=== PATIENT | female | born 1990 | race Caucasian/White ===

== ENCOUNTER 2016-08-17 12:02 | Emergency (ER) | payer SELFPAY ==
--- NOTE | 2016-08-17 15:29 | ED ---
Throat Pain/Nasal Congestion - HPI Summary HPI Summary: Patient presents 2x days after sustaining a cat scratch to the lower lid of the eye and nose. She denies visual disturbances or eye pain, but endorses lower lid pain and pain over the medial canthus. Abrasion noted over the nose is healing well and without infection. No signs of infection. Patient also has been c/o nausea/vomiting since the incident, but states this most likely is d/t anxiety over the incident. Afebrile. Denies C/D. Denies head pain, ear pain, tearing or rhinorrhea. - History of Current Complaint Chief Complaint: EDEyeProblem Time Seen by Provider: 08/17/16 12:28 Hx Obtained From: Patient Onset/Duration: Sudden Onset Severity: Moderate - Allergies/Home Medications Allergies/Adverse Reactions: Allergies Allergy/AdvReac Type Severity Reaction Status Date / Time No Known Allergies Allergy Verified 08/17/16 12:14 PMH/Surg Hx/FS Hx/Imm Hx Previously Healthy: Yes Sensory History: Denies: Hx Contacts or Glasses Opthamlomology History: Denies: Hx Contacts or Glasses - Immunization History Hx Pertussis Vaccination: No Immunizations Up to Date: Unable to Obtain/Confirm Infectious Disease History: No Infectious Disease History: Denies: Traveled Outside the [place] in Last 30 Days - Social History Occupation: Employed Full-time Lives: With Family Alcohol Use: Rare Hx Substance Use: No Substance Use Type: Reports: None Hx Tobacco Use: No Smoking Status (MU): Never Smoked Tobacco Review of Systems Constitutional: Negative Positive: Erythema - lower lid without warmth or signs of infection, Other - medial canthus pain ENT: Negative Cardiovascular: Negative Gastrointestinal: Negative Positive: no symptoms reported, see HPI Musculoskeletal: Negative Positive: Other - abrasion 3Xcm in length over anterior portion of nose Neurological: Negative Psychological: Normal All Other Systems Reviewed And Are Negative: Yes Physical Exam Triage Information Reviewed: Yes Vital Signs On Initial Exam: Initial Vitals Temp Pulse Resp BP Pulse Ox 97.2 F 67 16 124/74 98 08/17/16 12:10 08/17/16 12:10 08/17/16 12:10 08/17/16 12:10 08/17/16 12:10 Vital Signs Reviewed: Yes Appearance: Positive: Well-Appearing, Well-Nourished Skin: Positive: Warm, Skin Color Reflects Adequate Perfusion, Other - abrasion 3Xcm in length over anterior portion of nose Head/Face: Positive: Normal Head/Face Inspection Eyes: Positive: EOMI, MERI, Conjunctiva Clear, Conjunctiva Inflammed, Other: - medial canthus erythema ENT: Positive: Pharynx normal Neck: Positive: Supple, No Lymphadenopathy Respiratory/Lung Sounds: Positive: Clear to Auscultation, Breath Sounds Present Cardiovascular: Positive: Normal, RRR, Pulses are Symmetrical in both Upper and Lower Extremities Musculoskeletal: Positive: Normal, Strength/ROM Intact Neurological: Positive: Normal, Sensory/Motor Intact, Speech Normal Psychiatric: Positive: Normal AVPU Assessment: Alert Diagnostics - Vital Signs Vital Signs Temp Pulse Resp BP Pulse Ox 08/17/16 14:00 62 114/81 97 08/17/16 13:30 64 110/67 97 08/17/16 13:00 61 113/73 96 08/17/16 12:57 71 98 08/17/16 12:56 115/70 08/17/16 12:13 97.2 F 67 16 124/74 99 08/17/16 12:10 97.2 F 67 16 124/74 98 - Laboratory Lab Statement: Any lab studies that have been ordered have been reviewed, and results considered in the medical decision making process. EENT Course/Dx - Course Course Of Treatment: Patient presents s/p cat scratch to the lower lid of the eye with medial canthus pain. +nausea and vomiting x 2 days. Compazine given as rx. Fluorescein stain to the eye with numbing agent. Eye exam without corneal abrasions, ulcers. Patient OK for discharge. Return precautions given and patient is OK for discharge. - Differential Diagnoses Differential Diagnoses: Abrasion, Corneal Abrasion, Trauma - Diagnoses Provider Diagnoses: Abrasion, face w/o infection Discharge - Discharge Plan Condition: Stable Disposition: HOME Prescriptions: Prochlorperazine TAB* [Compazine Tab*] 10 mg PO Q6H PRN #12 tab PRN Reason: Nausea Patient Education Materials: Acute Nausea and Vomiting (ED) Referrals: No Primary Care Phys,NOPCP [Primary Care Provider] - Additional Instructions: Follow up with PCP as needed If you develop redness, streaks of red around the wound, swelling, abnormal drainage or you develop a fever - you need to come back to the ED right away. Compazine as needed for nausea - up to 4 times daily
== END 2016-08-17 14:34 | disposition home or self-care (01) ==
LOC: ED 12:02
DX: S00.219A Abrasion of unspecified eyelid and periocular area, initial encounter (principal); R11.2 Nausea with vomiting, unspecified; W55.03XA Scratched by cat, initial encounter; Y92.9 Unspecified place or not applicable
CPT/HCPCS: 99282

== ENCOUNTER 2019-03-30 13:20 | Emergency (ER) | payer BC ==
[2019-03-30 14:20] VITALS: BP 136/90
--- NOTE | 2019-03-30 14:24 | UC ---
Throat Pain/Nasal Myles HPI - HPI Summary HPI Summary: 20-year-old who presented with sore throat, nasal congestion, bilateral ear discomfort, and mild dry cough since yesterday. Also notes watery eyes. Denies shortness breath or wheezing. Denies nausea or vomiting. Denies fever and chills. Denies body aches. Denies taking anything for symptom relief. States concern for strep throat because she is "prone to it." - History of Current Complaint Stated Complaint: SORE THROAT SINUS EARS Hx Obtained From: Patient Hx Last Menstrual Period: irregular Pain Intensity: 4 Pain Scale Used: 0-10 Numeric - Allergies/Home Medications Allergies/Adverse Reactions: Allergies Allergy/AdvReac Type Severity Reaction Status Date / Time No Known Allergies Allergy Verified 08/17/16 12:14 Home Medications: Home Medications NK [No Home Medications Reported] 03/30/19 [History Confirmed 03/30/19] PMH/Surg Hx/FS Hx/Imm Hx - Surgical History Surgical History: None - Social History Alcohol Use: Rare Substance Use Type: None Smoking Status (MU): Never Smoked Tobacco Review of Systems All Other Systems Reviewed And Are Negative: Yes Constitutional: Positive: Negative ENT: Positive: Sore Throat, Ear Ache, Sinus Congestion Respiratory: Positive: Cough Cardiovascular: Positive: Negative Gastrointestinal: Positive: Negative Musculoskeletal: Positive: Negative Neurological/Mental Status: Positive: Negative Physical Exam - Summary Physical Exam Summary: Vital Signs Reviewed: Yes A+Ox3, no distress Eyes: Conjunctiva Clear ENT: Hearing grossly normal, TM x 2 clear, moist, uvula midline, no exudate, + pharyngeal erythema Neck: Positive: Supple Respiratory: Positive: No respiratory distress, No accessory muscle use + CTA throughout no w/r Cardiovascular: RRR nl s1, s2 no m/r Musculoskeletal Exam: BOWLES x 4 without difficulty Neurological: Positive: Alert Psychological: Positive: age appropriate behavior Skin: Positive: no rash, no ecchymosis Vital Signs: Initial Vital Signs Temp 98.5 F 03/30/19 14:16 Pulse 66 03/30/19 14:16 Resp 14 03/30/19 14:16 BP 136/90 03/30/19 14:16 Pulse Ox 98 03/30/19 14:16 Throat Pain/Nasal Course/Dx - Course Course Of Treatment: Negative rapid strep. Patient declined flu test. Discussed viral illness with patient and instructed to continue with symptomatic treatment. Instructed to follow up with PCP or [facility] if symptoms persist. Patient voiced understanding and agreed with treatment plan. - Differential Dx/Diagnosis Differential Diagnosis/HQI/PQRI: Influenza, Pharyngitis, URI Provider Diagnosis: Pharyngitis, URI (upper respiratory infection) Discharge ED - Sign-Out/Discharge Documenting (check all that apply): Patient Departure All imaging exams completed and their final reports reviewed: No Studies - Discharge Plan Condition: Stable Disposition: HOME Patient Education Materials: Pharyngitis (ED) Referrals: [facility] [Outside] - If Needed Additional Instructions: Your strep test was negative today. Your symptoms are likely caused by a virus and should resolve without treatment. You may continue with over the counter pain medications. Follow up with your primary care provider or the [facility] listed below if symptoms do not improve within 7 days. - Billing Disposition and Condition Condition: STABLE Disposition: Home
== END 2019-03-30 15:05 | disposition home or self-care (01) ==
LOC: UCCORT 13:20
DX: J02.9 Acute pharyngitis, unspecified (principal); H92.03 Otalgia, bilateral
CPT/HCPCS: 87651; 99211; G0463